=== PATIENT | male | born 1995 | race Caucasian/White ===

== ENCOUNTER 2016-12-10 21:21 | Inpatient (IN) | payer BC, OTHER ==
[~2016-12-10] VITALS: Ht 180.3 cm; Wt 59.0 kg
[~2016-12-10 21:21] MED LIST: Baclofen PO; DICY20TA28 PO; DIPH50CA37 PO; FLUO40CA49 PO; Gabapentin PO; HYDR-3895 PO; Ibuprofen PO; TRAZ-147 PO
[2016-12-10 21:51] LABS: *AMPHETAMINE, URINE NEGATIVE (NEGATIVE); *BARBITURATE, URINE NEGATIVE (NEGATIVE); *CANNABINOID, URINE POSITIVE (NEGATIVE); *COCCAINE, URINE NEGATIVE (NEGATIVE); *OPIATE, URINE POSITIVE (NEGATIVE); *PHENCYCLIDINE SCREEN,URINE NEGATIVE (NEGATIVE)
[2016-12-10] MEDS ORDERED: ACETAMINOPHEN 325 MG TABLET PO PRN (22:15)
[2016-12-10] MEDS ORDERED: METHOCARBAMOL 750 MG TABLET PO PRN (22:15)
[2016-12-10] MEDS ORDERED: MIRALAX 17 GM POWD.PACK PO PRN (22:15)
[2016-12-10] MEDS ORDERED: MAG HYDROX/AL HYDROX/SIMETH 30 ML LIQUID UDC PO PRN (22:15)
[2016-12-10] MEDS ORDERED: DICYCLOMINE HCL 20 MG TABLET PO PRN (22:15)
[2016-12-10] MEDS ORDERED: LORAZEPAM 1 MG TABLET PO PRN ×2 (22:15)
[2016-12-10] MEDS ORDERED: ONDANSETRON 4 MG/2 ML VIAL IM PRN (22:15)
[2016-12-10] MEDS ORDERED: LOPERAMIDE HCL 2 MG CAPSULE PO PRN ×2 (22:15)
[2016-12-10] MEDS ORDERED: IBUPROFEN 600 MG TABLET PO PRN (22:15)
[2016-12-10] MEDS ORDERED: LORAZEPAM 2 MG/1 ML VIAL IM PRN (22:15)
[2016-12-10] MEDS ORDERED: BUPRENORPHINE HCL 2 MG TAB.SUBL SL PRN (22:15)
[2016-12-10 22:20] VITALS: BP 115/59
--- NOTE | 2016-12-10 22:20 | NUR ---
ADMISSION NOTE: New admission is a 21 year old male who arrived to [facility] at 2220 on 12/10/16 for benzodiazepines and opioid dependence. Pre-assessment completed in intake. Patient reports allergies to Penicillin m/b hives. Patient placed on Full Code, Regular Diet, Fall and Seizures Precautions. Patients denies Seizures Hx. UDS Test provided. Patient is ambulatory with steady gate, stable, AOx4, speech is soft and clear. Patient is 71 in, and weights 130lb. PMH: Anxiety, Depression, PTSD, OCD Disorder, Agoraphobia, Substance abuse. VS: T: 98'4; BP: 111/59; HR: 86; RR: 18; O2 SAT: 98%, pain level:"0/10". Respirations unlabored and even. Patient denies SOB and chest pain. Lungs Sounds are clear bilaterally. Bowel Sounds active in all x4 quadrants. Last Bowel Movement was "12/10/2016". PERRLA, brisk capillary refill, bee producer equal and strong. Body check performed by BHT and skin check performed by nurse. Skin is intact, warm and dry to touch. Patient has acnes on his back. Patient states that he is here to safety detox from drugs".. Patient appears mildly intoxicated and answers questions appropriately. COWS 7,CIWA 5. Patient presented with anxiety, agitation, nervousness, tremors, barely sweating, restless legs, and fatigue. Patient denies SI/HI. Patient states that he "relapsed 4 months ago ", and his substance use has steadily increased since that time. History of Substance Use: 1) "Heroin: "Smoked /Snorted 3 grams every day during last 4 months. Last use 3 grams at 1100 on 12/10/2016". 2) "Oxycontin/Percocet PO - for Oxycontin 20-30 mg PO per day; for Percocet: 15-20 mg per day. Last use was on 12/08/2016 Per Patient, he uses either of these substances, whichever is available at the time". 3) "Xanax 8 mg PO daily, last use was 12/10/2016 at 1500". Patient reports smoking 6-7 cigarettes daily since"2011". Written smoking cessation education provided. Patient Verbalizes understanding. Patient brought in home medications: Mirtazapine. PCP: "Nigel Adorno MD". Patient admitted under the care of Rafael Aguillon MD. Rafael Aguillon MD assessed patient in intake office, and aware for patient condition. Encouraged fluids as tolerated. Patient oriented to floor and room, explained how to use call light. Patient verbalized understanding. Safety measures on place. Call light within reach, bed in lowest position and locked, padded rails up bilaterally rails up bilaterally. Will continue to monitor closely. Addendum: 12/14/16 at 0341 by WILTON TORRES RN Skin is intact, warm and dry to touch. Patient has acnes on his back.
--- NOTE | 2016-12-10 22:20 | NUR ---
Pre-admission assessment Patient is a 21-year old, male, seen at intake, AAOx4, no SOB and with no anxiety noted at this time. Discussed with patient admission policies of the unit. Patient is coherent and able to respond to questions appropriately. Patient was recently admitted at [facility] from 04/09/2017 to 05/07/2017. Pt is ambulatory with steady gait. Pt reports that he is using the following substance since September 2016: 1) Heroin-smoked/snorted 3 gms daily, last use was 12/10/2016 at 1100. 2) Oxycontin/Percocet-for Oxycontin 20-30 mg PO daily; for Percocet 15-20 mg PO daily; last use was 12/08/2016. Per patient, he uses either of these substances, whichever is available at the time. 3) Xanax-8mg PO daily, last use was 12/10/2016 at 1500. Vital signs taken and as follows: NB=536/59, P=86, O2 sat on RA=98%, RR=18, T=97.9. Pt verbalized instructions and teachings regarding disposal of narcotic and other controlled home meds, unit protocols such as taking of vital signs Q4H and handling and disposal of contraband.
[2016-12-10 22:35] LABS: BASOPHILS # (AUTO) 0.1 K/uL (0.0-8.0); BASOPHILS % (AUTO) 0.9 % (0.0-2.0); EOSINOPHILS # (AUTO) 0.4 K/uL (0.0-0.7); EOSINOPHILS % (AUTO) 3.8 % (0.0-7.0); HEMATOCRIT 42.6 % (40-50); HEMOGLOBIN 14.6 G/DL (14.0-18.0); LYMPHOCYTES # (AUTO) 2.1 K/UL (0.8-4.8); LYMPHOCYTES % (AUTO) 22.5 % (20.5-74.5); MEAN CORPUSCULAR HEMOGLOBIN 30.2 UUG (27.0-31.0); MEAN CORPUSCULAR HGB CONC 34 g/dL (32.0-37.0); MEAN CORPUSCULAR VOLUME 88.2 FL (82.0-92.0); MONOCYTES # (AUTO) 0.7 K/UL (0.1-1.30); MONOCYTES % (AUTO) 7.2 % (0-11); NEUTROPHILS % (AUTO) 65.6 % (31.5-64.5); PLATELET COUNT (AUTO) 212 K/UL (150-450); RED BLOOD CELL COUNT(AUTO) 4.83 MIL/UL (4.7-6.1); WHITE BLOOD COUNT (AUTO) 9.3 K/UL (4.0-11.2)
[2016-12-10 22:40] LABS: ALANINE AMINOTRANSFERASE 24 U/L (16-63); ALKALINE PHOSPHATASE 42 U/L (50-136); ASPARTATE AMINOTRANSFERASE 21 U/L (15-37); BILIRUBIN,TOTAL 0.5 mg/dL (0.2-1.0); CARBON DIOXIDE 31 mmol/L (21-32); CHLORIDE 103 mmol/L (98-107); GLUCOSE 83 mg/dL (74-106); POTASSIUM 4.5 mmol/L (3.5-5.1); TOTAL PROTEIN, SERUM 7.8 g/dL (6.4-8.2); UREA NITROGEN, BLOOD 11 mg/dL (7-18)
[2016-12-10 22:44] LABS: ETHANOL < 3 MG/DL (0-0)
[2016-12-10] MEDS ORDERED: LORAZEPAM 1 MG TABLET PO ONE (23:00)
[2016-12-10] MEDS: CLONIDINE HCL 0.1 MG TABLET PO PRN (23:13)
--- NOTE | 2016-12-10 23:15 | NUR ---
PRN ATIVAN 2 MG 2 TAB PO AND PRN CLONIDINE 0.1 MG 1TAB PO ADMINISTRATION Patient c/o increased anxiety and insomnia. Patient was assessed. COWS 7. Patient presented with moderated anxiety, agitated, has sweats,and tremors that can be felt. VS WNL. Ordered PRN Ativan 2 mg 2 tab PO and PRN Clonidine 0.1 mg 1 tab PO administrated as ordered with full glass of water. Patient tolerated well. All needs met. Safety measures on place. Call light within reach, bed in lowest position and locked, padded rails up bilaterally rails up bilaterally. Will continue to monitor closely.
[2016-12-10] MEDS ORDERED: LORAZEPAM 1 MG TABLET ONE ×2 (23:20→23:28)
[2016-12-10] MEDS ORDERED: CLONIDINE HCL 0.1 MG TABLET ONE (23:21)
[2016-12-10] MEDS ORDERED: MIRT45TA5 PO (23:35)
[2016-12-11] VITALS: BP_SYST 106; BP_SYST 92; BP_DIAS 49; BP_DIAS 54
--- NOTE | 2016-12-11 00:15 | NUR ---
RE-ASSESSMENT Patient is sleeping. Respirations unlabored and even. RR 16. PRN Ativan and PRN Clonidine were effective. Safety measures on place. Call light within reach, bed in lowest position and locked, padded rails up bilaterally rails up bilaterally. Will continue to monitor closely.
[2016-12-11 04:00] VITALS: BP 93/53
--- NOTE | 2016-12-11 07:11 | NUR ---
END OF SHIFT NOTE: Patient endorsed to day shift nurse in stable condition. Report given. Patient is a 21 year old male admitted to [facility] on 12/10/2016 for medically supervised withdrawal from heroin and benzodiazepines, ordered 5 Day Ativan and 5 Day Subutex Taper started on 12/11/2016. Patient admitted under the care of Rafael Aguillon MD. Patient reports Allergies to Penicillin m/b hives. Patient placed on Full Code, Regular Diet, Fall and Seizures Precautions. Patients denies Seizures Hx. PMH: Anxiety, Depression, PTSD, OCD Disorder, Agoraphobia, Substance abuse. Respirations unlabored and even. Patient denies SOB and chest pain. Skin is warm and dry to touch. Patient has acnes on his back. Patient is cooperative. Patient appears mildly intoxicated and answers questions appropriately. Last COWS 4, CIWA 3 at 0400. 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 Patient denies SI/HI. VS at 0400: T: 97.4; BP: 93/53; HR: 74; RR: 16; O2 SAT: 97%, pain level:"0/10". Respirations unlabored and even. Skin is intact, warm and dry to touch. Patient has acnes on the back. Encouraged fluids as tolerated. PRN Ativan 2 mg 2 tab PO and PRN Clonidine 0.1 mg 1 tab PO administrated for anxiety and insomnia as ordered and were effective. Patient remained compliant with treatment, and medications. Patient slept 5 hours 25 min, intake 500 ml, voided x1. All needs met. Safety measures on place. Call light within reach, bed in lowest position and locked, padded rails up bilaterally. Encouraged fluids as tolerated.
[2016-12-11 08:00] VITALS: BP 100/60
--- NOTE | 2016-12-11 08:15 | NUR ---
START OF SHIFT: RECEIVED PT A/O X 4. HE PRESENTS WITH BLUNTED AFFECT AND DEPRESSED MOOD. HE DENIES S/I AND H/I. HE REPORTS BODY ACHES,ANXIETY,RESTLESSNESS,CHILLS AND SWEATS. COWS 14 CIWA 5. SUBUTEX AND ATIVAN TAPER IN PROGRESS. PPD PLANTED TO [facility]. ENCOURAGED INCREASED FLUIDS TO ASSIST IN FACILITATING DETOX PROCESS. WILL CONTINUE TO MONITOR AND MANAGE S/S OF W/D.
[2016-12-11] MEDS ORDERED: TUBERCULIN,PURIF.PROT.DERIV. 5 TU/0.1 ML TEST ID ONE (09:00)
[2016-12-11] MEDS: LORAZEPAM 1 MG TABLET PO SCH ×4 (09:13→20:11)
[2016-12-11] MEDS: MULTIVITAMINS,THERAPEUTIC TABLET PO SCH (09:14)
[2016-12-11] MEDS: BUPRENORPHINE HCL 2 MG TAB.SUBL SL SCH ×4 (09:18→20:10)
--- NOTE | 2016-12-11 10:40 | NUR ---
ATIVAN 2 MG PO PRN GIVEN FOR CIWA 12. HE REPORTS HE IS ON THE VERGE OF PANIC ATTACK. WILL MONITOR EFFECTIVENESS.
--- NOTE | 2016-12-11 11:40 | NUR ---
PT STATES THE ATRIVAN WAS EFFECTIVE. HE STATES HE FEELS BETTER. CIWA 7. WILL CONTINUE TO MONITOR.
[2016-12-11 12:00] VITALS: BP 114/63
[2016-12-11] MEDS ORDERED: KETOROLAC TROMETHAMINE 30 MG INJ IM PRN (12:30)
--- NOTE | 2016-12-11 13:07 | NUR ---
Therapist prompted client to attend group therapy sessions, and informed client of group times. Client stated that he would attend.
[2016-12-11 16:00] VITALS: BP 134/96
[2016-12-11] MEDS: ONDANSETRON ODT 4 MG TAB.RAPDIS SL PRN (16:33)
--- NOTE | 2016-12-11 16:35 | NUR ---
PRN ZOFRAN GIVEN FOR REPORTED NAUSEA AND ONE EPISODE OF VOMITING. WILL MONITOR EFFECTIVENESS.
--- NOTE | 2016-12-11 17:10 | NUR ---
PRN ZOFRAN EFFECTIVE. PT STATES HE FEELS BETTER.
[2016-12-11] MEDS: BOOST PLUS 237 ML LIQUID (RICH CHOCOLATE) PO SCH (18:28)
--- NOTE | 2016-12-11 18:56 | NUR ---
END OF SHIFT: PT CONTINUES ON ATIVAN/ SUBUTEX TAPER. HE REPORTED CHILLS,BODY ACHES,SWEATS NAUSEA AND VOMITING TODAY. PRN ZOFRAN GIVEN AND PRN ATIVAN GIVEN AND EFFECTIVE. PPD PLANTED TO [facility]. LAST COWS 12 CIWA 7. ENCOURAGED REST AND INCREASED FLUIDS TODAY. WILL PASS SHIFT REPORT TO ONCOMING NIGHT NURSE.
--- NOTE | 2016-12-11 18:56 | NUR ---
START OF SHIFT NOTE: Patient endorsed by day shift nurse in stable condition. Report received. Patient is a 21 year old male admitted to [facility] on 12/10/2016 for medically supervised withdrawal from opioid and benzodiazepines, continue 5 Day Ativan and 5 Day Subutex Taper since 12/11/2016 with tolerated well without ASE. Patient remained compliant with treatment, medications and diet regime. Patient reports Allergies to Penicillin m/b hives. Patient is on Full Code, Regular Diet, Fall and Seizures Precautions. Patients denies Seizures Hx. PMH: Anxiety, Depression, PTSD, OCD Disorder, Agoraphobia, Substance abuse. Upon endorsement, patient is in his room. Assessment done. Patient is alert and oriented x4. Speech is clear and soft. COWS 12, CIWA 7. Patient presented with anxiety, agitation, nervousness, nasal stuffy, moist eyes, diaphoresis, tremors that can be felt, restlessness, body aches, insomnia and fatigue. Patient denies SI/HI. VSWNL. Respirations unlabored and even. Patient denies SOB and chest pain. Lungs Sounds are clear bilaterally. Bowel Sounds active in all x4 quadrants. PERRLA, brisk capillary refill, commercial journeyman electrician equal and strong. Encourage fluids as tolerated. Encourage to attend activities group. Safety measures on place. Call light within reach, bed in lowest position and locked, padded rails up bilaterally rails up bilaterally. Will continue to monitor closely.
[2016-12-11 20:00] VITALS: BP 111/62
[2016-12-11] MEDS: diphenhydrAMINE 50 MG CAPSULE PO PRN (21:43)
--- NOTE | 2016-12-11 21:43 | NUR ---
PRN BENADRYL 50 MG 1 TAB PO ADMINISTRATION: Patient c/o insomnia and asked aid. Patient was assessed. VS WNL. PRN Benadryl 50 mg 1 tab PO administrated as ordered with full glass of water. Patient tolerated well. All needs met. Safety measures on place. Call light within reach, bed in lowest position and locked, padded rails up bilaterally.
--- NOTE | 2016-12-11 22:43 | NUR ---
RE-ASSESSMENT Patient is sleeping. Respirations unlabored and even. RR 14. PRN Benadryl PO was effective. All needs met. Safety measures on place. Call light within reach, bed in lowest position and locked, padded rails up bilaterally rails up bilaterally. Will continue to monitor closely.
[2016-12-11] MEDS: HYDROXYZINE PAMOATE 25 MG CAPSULE PO PRN (23:18)
--- NOTE | 2016-12-11 23:18 | NUR ---
PRN VISTARIL 25 MG 1 CAP PO AND PRN ROBAXIN 750 MG 1TAB PO ADMINISTRATION Patient c/o increased anxiety and myalgia. Patient was assessed. COWS 6. Patient presented with anxiety, agitation, nervousness, has sweats, and tremors that can be felt. VS WNL. Ordered PRN Vistaril 25 mg 1 cap PO and PRN Robaxin 750 mg 1 tab PO administrated as ordered with full glass of water. Patient tolerated well. All needs met. Safety measures on place. Call light within reach, bed in lowest position and locked, padded rails up bilaterally rails up bilaterally. Will continue to monitor closely.
[2016-12-12] VITALS: BP 116/62
--- NOTE | 2016-12-12 00:18 | NUR ---
RE-ASSESSMENT Patient is sleeping. Respirations unlabored and even. RR 14. Ordered PRN Vistaril 25 mg 1 cap PO and PRN Robaxin 750 mg 1 tab PO were effective. All needs met. Safety measures on place. Call light within reach, bed in lowest position and locked, padded rails up bilaterally rails up bilaterally. Will continue to monitor closely.
[2016-12-12 04:00] VITALS: BP 104/49
--- NOTE | 2016-12-12 07:02 | NUR ---
END OF SHIFT NOTE: Patient endorsed to day shift nurse in stable condition. Report given. Patient is a 21 year old male admitted to [facility] on 12/10/2016 for medically supervised withdrawal from heroin and benzodiazepines, continue 5 Day Ativan and 5 Day Subutex Taper started on 12/11/2016 with tolerated well without ASE. Patient remained compliant with treatment, medications and diet regime. Patient reports Allergies to Penicillin m/b hives. Patient placed on Full Code, Regular Diet, Fall and Seizures Precautions. Patients denies Seizures Hx. PMH: Anxiety, Depression, PTSD, OCD Disorder, Agoraphobia, Substance abuse. Patient is cooperative. Patient appears mildly intoxicated and answers questions appropriately. Last COWS 5, CIWA 3 at 0400. 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 Patient denies SI/HI. VS at 0400: T: 98.2; BP: 104/49; HR: 65; RR:20; O2 SAT: 99%, body aches pain level:"6/10". Respirations unlabored and even. Skin is intact, warm and dry to touch. Patient has acnes on the back. Encouraged fluids as tolerated. Encourage to attend group activities PRN Benadryl 50 mg 1 cap PO, Vistaril 25 mg 1 cap PO and PRN Robaxin 750 mg 1 tab PO were effective. Patient remained compliant with treatment, and medications. Patient slept 5 hours 25 min, intake 500 ml, voided x1. All needs met. Safety measures on place. Call light within reach, bed in lowest position and locked, padded rails up bilaterally.
--- NOTE | 2016-12-12 07:42 | NUR ---
START OF SHIFT NOTE Received report from night nurse, 21 year old male admitted for Opioid and benzo dependence. Pt continue with 5 Day Ativan and 5 Day Subutex Taper. Pt reported PMH of Anxiety, Depression, PTSD, OCD Disorder, Agoraphobia, Substance abuse. Per endorsement pt received PRN Benadryl, Vistaril, Robaxin effective, slept for 5 hours, last CIWA-3, COWS-5. Received pt in his room c/o of nausea x1 emesis. Educated patient on his current plan of care for the day and his medication regimen, and encourage Po fluids as tolerated. All safety measures in place, Call light within reach. Will continue to monitor.
[2016-12-12] MEDS: ONDANSETRON ODT 4 MG TAB.RAPDIS SL PRN (07:46)
--- NOTE | 2016-12-12 07:46 | NUR ---
PRN ZOFRAN Pt reported nausea and x1 emesis. PRN Zofran 4mg SL administered as ordered. Will cont to monitor and reassess.
[2016-12-12 08:00] VITALS: BP 121/63
--- NOTE | 2016-12-12 08:15 | NUR ---
REASSESSMENT Upon reassessment pt reported medication effective nausea improved and no episode of emesis reported by the pt.
[2016-12-12] MEDS: BOOST PLUS 237 ML LIQUID (RICH CHOCOLATE) PO SCH ×2 (08:44→16:52)
[2016-12-12] MEDS: MULTIVITAMINS,THERAPEUTIC TABLET PO SCH (08:45)
[2016-12-12] MEDS: LORAZEPAM 1 MG TABLET PO SCH ×3 (08:45→21:04)
[2016-12-12] MEDS: BUPRENORPHINE HCL 2 MG TAB.SUBL SL SCH ×3 (08:45→21:05)
[2016-12-12 12:00] VITALS: BP 124/72
[2016-12-12 12:10] LABS: HEPATITIS B SURFACE AG Negative (Negative)
[2016-12-12] MEDS ORDERED: ASPIRIN/ACETAMINOPHEN/CAFFEINE TABLET PO PRN (12:30)
--- NOTE | 2016-12-12 12:51 | NUR ---
SUBUTEX/ATIVAN X1 DOSE Pt was seen by Dr. Ordoñez with new x1 order of Subutex 4mg SL /Ativan 1mg Po. Administered medications as order COWS score noted 10, CIWA-9. Will cont to monitor.
[2016-12-12] MEDS ORDERED: LORAZEPAM 1 MG TABLET PO ONE (13:00)
[2016-12-12] MEDS ORDERED: BUPRENORPHINE HCL 2 MG TAB.SUBL SL ONE (13:00)
--- NOTE | 2016-12-12 13:15 | NUR ---
SUBUTEX REASSESSMENT Upon reassessment pt reported medication effective COWS score noted-7. Will cont to monitor.
--- NOTE | 2016-12-12 13:51 | NUR ---
ATIVAN REASSESSMENT Upon reassessment pt reported medication effective CIWA score noted-4. Will cont to monitor.
[2016-12-12] MEDS: BACLOFEN 10 MG TABLET PO SCH ×2 (15:26→21:04)
[2016-12-12] MEDS: DICYCLOMINE HCL 20 MG TABLET PO SCH ×2 (15:26→21:05)
[2016-12-12 16:00] VITALS: BP 125/69
--- NOTE | 2016-12-12 19:02 | NUR ---
END OF SHIFT NOTE Gave report to night nurse, 21 year old male admitted for Opioid and benzo dependence. Pt continue with 5 Day Ativan and 5 Day Subutex Taper tolerating well. Pt reported PMH of Anxiety, Depression, PTSD, OCD Disorder, Agoraphobia, Substance abuse. Pt presented anxious, agitated, sweats, chills, nausea, vomiting. Pt was given PRN Zofran, x1 order of Subutex and Ativan effective. Pt also seen by Dr. Hanson with new order of Remeron. Pt remained compliant with care. Vital signs remained WNL. All safety measures in place, Call light within reach. Pt endorsed to night nurse in stable condition.
--- NOTE | 2016-12-12 19:15 | NUR ---
START OF SHIFT Received 21 year old male patient admitted on 12/10/16 for Heroin, Oxycodone and Xanax dependency. Pt is full code with NKA. He reports a PMHx of anxiety, depression, OCD, and PTSD. Pt reports using Heroin (inhalation) 3 grams daily for 4 months. Last dose was 3 grams on 12/10/16. Oxycodone 20-40 mg daily for 4 years. Last dose was 20 mg on 12/09/16. Xanax PO 6-8 mg daily for 4 years. Last dose was 6 mg on 12/10/16. Percocet PO 15-20 mg daily. Last dose was 12/08/16. Per endorsement, pt received Subutex 4 mg and Ativan 2 mg x1, and PRN Zofran. Pt placed on 5 day Ativan taper and 5 day Subutex taper started on 12/11/16. Pt is alert and oriented x4, breathing is even and unlabored. Safety measures in place. Will continue to monitor.
[2016-12-12 20:00] VITALS: BP 117/72
[2016-12-12] MEDS: GABAPENTIN 300 MG CAPSULE PO SCH (21:04)
[2016-12-12] MEDS: MIRTAZAPINE 15 MG TABLET PO SCH (21:04)
[2016-12-12] MEDS: diphenhydrAMINE 50 MG CAPSULE PO PRN ×2 (21:05→22:18)
--- NOTE | 2016-12-12 22:18 | NUR ---
PRN BENADRYL Pt complains of inability to sleep. PRN Benadryl administered as ordered. Breathing is even and unlabored. Safety measures in place. Will monitor effectiveness.
--- NOTE | 2016-12-12 23:18 | NUR ---
PRN BENADRYL REASSESSMENT PRN medication somewhat effective. Pt lying in bed appears drowsy and reports he is ready to sleep. Safety measures in place. Will continue to monitor.
[2016-12-13] VITALS: BP 134/85
[2016-12-13] MEDS: CLONIDINE HCL 0.1 MG TABLET PO PRN (00:45)
--- NOTE | 2016-12-13 00:45 | NUR ---
PRN CLONIDINE Pt complains of anxiety. Pt noted to be restless and tossing/turning in bed. PRN Clonidine administered as ordered. Breathing is even and unlabored, safety measures in place. Will monitor effectiveness.
--- NOTE | 2016-12-13 01:45 | NUR ---
PRN CLONIDINE REASSESSMENT PRN medication effective. Pt is lying in bed with eyes closed noted to be asleep. No facial grimacing. Respirations 16, breathing is even and unlabored. Safety measures in place. Will monitor.
--- NOTE | 2016-12-13 04:00 | NUR ---
VITALS REFUSED/COWS, CIWA DEFERRED 0400 vitals refused. COWS and CIWA deferred d/t pt lying in bed with eyes closed noted to be asleep. Respirations 16, breathing is even and unlabored, safety measures in place. Will continue to monitor.
--- NOTE | 2016-12-13 07:05 | NUR ---
END OF SHIFT Pt is a 21 year old male patient admitted on 12/10/16 for Heroin, Oxycodone and Xanax dependency. Pt is full code with NKA. He reports a PMHx of anxiety, depression, OCD, and PTSD. Pt continues on a 5 day Ativan taper and 5 day Subutex taper started on 12/11/16 and tolerating well. At 2218 he received PRN Benadryl, at 0045 he received PRN Clonidine. He slept a total of 7 hrs, Intake: 1350 mL, Void: x1, BM:0, COWS:6, CIWA:5. Pt remains alert and oriented x4, breathing is even and unlabored. Safety measures in place. Will endorse to oncoming shift.
--- NOTE | 2016-12-13 07:49 | NUR ---
START OF SHIFT NOTE Received report from night nurse, 21 year old male admitted for Opioid and benzo dependence. Pt continue with 5 Day Ativan and 5 Day Subutex Taper. Pt reported PMH of Anxiety, Depression, PTSD, OCD Disorder, Agoraphobia, Substance abuse. Per endorsement pt received PRN Clonidine effective, slept for 7 hours, last CIWA-5, COWS-6. Received pt in his resting comfortably, no s/s of acute distress noted. Breathing normal no SOB noted. Skin warm and dry tot touch. Educated patient on his current plan of care for the day and his medication regimen, and encourage Po fluids as tolerated. All safety measures in place, Call light within reach. Will continue to monitor.
[2016-12-13 08:00] VITALS: BP 104/64
[2016-12-13] MEDS: LORAZEPAM 1 MG TABLET PO SCH ×4 (08:47→20:56)
[2016-12-13] MEDS: GABAPENTIN 300 MG CAPSULE PO SCH ×3 (08:47→20:55)
[2016-12-13] MEDS: DICYCLOMINE HCL 20 MG TABLET PO SCH ×3 (08:47→20:56)
[2016-12-13] MEDS: MULTIVITAMINS,THERAPEUTIC TABLET PO SCH (08:47)
[2016-12-13] MEDS: BOOST PLUS 237 ML LIQUID (RICH CHOCOLATE) PO SCH ×2 (08:48→16:44)
[2016-12-13] MEDS: BACLOFEN 10 MG TABLET PO SCH (08:54)
[2016-12-13] MEDS ORDERED: BUPRENORPHINE HCL 2 MG TAB.SUBL SL SCH (09:00)
[2016-12-13] MEDS: HYDROXYZINE PAMOATE 25 MG CAPSULE PO PRN (11:31)
--- NOTE | 2016-12-13 11:31 | NUR ---
PRN VISTARIL Pt reported increased in anxiety, agitation. Pt provided with non pharmacological intervention with no relief, providing with calming reassurance with no relief. Administered PRN Vistaril 25mg Po as ordered. Will cont to monitor.
[2016-12-13 12:00] VITALS: BP 122/81
--- NOTE | 2016-12-13 12:31 | NUR ---
VISTARIL REASSESSMENT Upon reassessment pt reported feeling a lot better anxiety and agitation subside, medication effective.
[2016-12-13] MEDS: CLONIDINE HCL 0.1 MG TABLET PO SCH ×2 (14:00→20:57)
[2016-12-13] MEDS: BACLOFEN 20 MG TABLET PO SCH ×2 (14:00→20:57)
[2016-12-13] MEDS: BUPRENORPHINE HCL 2 MG TAB.SUBL SL SCH ×2 (14:00→20:55)
[2016-12-13 16:00] VITALS: BP 119/64
[2016-12-13] MEDS: ONDANSETRON ODT 4 MG TAB.RAPDIS SL PRN (16:44)
--- NOTE | 2016-12-13 16:44 | NUR ---
PRN ZOFRAN Pt reported nausea no episode of emesis. PRN Zofran 4mg SL administered as ordered. Will cont to monitor and reassess.
--- NOTE | 2016-12-13 17:14 | NUR ---
REASSESSMENT Upon reassessment pt reported medication effective nausea improved. Will cont to monitor.
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
--- NOTE | 2016-12-13 19:04 | NUR ---
END OF SHIFT NOTE Endorsed Pt to shift commander nurse. Patient is AOX4. Pt cont with Ativan/Subutex taper tolerating well. Vital signs stable during shift. Encouraged PO fluids as tolerated. Pt received PRN Vistaril/Zofran medications effective. Patient encouraged to attend group therapies/sessions to learn new coping skills to prevent relapse, patient denies SI/HI. Pt remained compliant with plan of care. Fall and seizure precautions observed at all times, all needs met and rendered, Safety measures in place. Call light kept within reach. Patient endorsed to shift commander nurse, all pertinent information discussed. Patient endorsed to shift commander nurse in stable condition.
[2016-12-13 20:00] VITALS: BP 113/78
[2016-12-13] MEDS: MIRTAZAPINE 15 MG TABLET PO SCH (20:56)
[2016-12-14] VITALS: BP 107/71
[2016-12-14 04:00] VITALS: BP 128/65
--- NOTE | 2016-12-14 06:49 | NUR ---
END OF SHIFT NOTE: Patient endorsed to day shift nurse in stable condition. Report given. Patient is a 21 year old male admitted to [facility] on 12/10/2016 for medically supervised withdrawal from heroin and benzodiazepines, continue 5 Day Ativan and 5 Day Subutex Taper started on 12/11/2016 with tolerated well without ASE. Patient remained compliant with treatment, medications and diet regime. Patient reports Allergies to Penicillin m/b hives. Patient placed on Full Code, Regular Diet, Fall and Seizures Precautions. Patients denies Seizures Hx. PMH: Anxiety, Depression, PTSD, OCD Disorder, Agoraphobia, Substance abuse. Patient is cooperative. Patient appears mildly intoxicated and answers questions appropriately. Last COWS 4, CIWA 3 at 0400. 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 Patient denies SI/HI. VS at 0400: T: 97.7; BP: 128/65; HR: 67; RR:18; O2 SAT: 99%, body aches pain level:"0/10". Respirations unlabored and even. Skin is intact, warm and dry to touch. Patient has acnes on the back and the face. Encouraged fluids as tolerated. Encourage to attend group activities. No PRN Medications administrated last night. Patient remained compliant with treatment, and medications. Patient slept 6 hours, intake 2,000 ml, voided x3. All needs met. Safety measures on place. Call light within reach, bed in lowest position and locked, padded rails up bilaterally.
--- NOTE | 2016-12-14 07:45 | NUR ---
START OF SHIFT NOTE Received report from night nurse, 21 year old male admitted for Opioid and benzo dependence. Pt continue with 5 Day Ativan and 5 Day Subutex Taper. Pt reported PMH of Anxiety, Depression, PTSD, OCD Disorder, Agoraphobia, Substance abuse. Per endorsement pt did not receive any PRN, slept for 7 hours, last CIWA-3, COWS-4. Received pt in his room alert awake oriented x4, no s/s of acute distress noted. Breathing normal no SOB noted. Skin warm and dry to touch. Educated patient on his current plan of care for the day and his medication regimen, and encourage Po fluids as tolerated. All safety measures in place, Call light within reach. Will continue to monitor.
[2016-12-14 08:00] VITALS: BP 125/70
[2016-12-14] MEDS: CLONIDINE HCL 0.1 MG TABLET PO SCH ×3 (08:32→21:00)
[2016-12-14] MEDS: MULTIVITAMINS,THERAPEUTIC TABLET PO SCH (08:32)
[2016-12-14] MEDS: BUPRENORPHINE HCL 2 MG TAB.SUBL SL SCH ×3 (08:32→21:50)
[2016-12-14] MEDS: BOOST PLUS 237 ML LIQUID (RICH CHOCOLATE) PO SCH ×2 (08:32→17:27)
[2016-12-14] MEDS: BACLOFEN 20 MG TABLET PO SCH ×3 (08:32→21:49)
[2016-12-14] MEDS: LORAZEPAM 1 MG TABLET PO SCH ×3 (08:32→21:50)
[2016-12-14] MEDS: GABAPENTIN 300 MG CAPSULE PO SCH ×3 (08:32→21:49)
[2016-12-14] MEDS: DICYCLOMINE HCL 20 MG TABLET PO SCH ×3 (08:32→21:49)
[2016-12-14 12:00] VITALS: BP 110/75
[2016-12-14] MEDS: HYDROXYZINE PAMOATE 25 MG CAPSULE PO SCH ×4 (12:46→21:49)
[2016-12-14 16:00] VITALS: BP 106/63
--- NOTE | 2016-12-14 19:12 | NUR ---
END OF SHIFT NOTE Endorsed Pt to production supervisor off shift nurse. Patient is AOX4.21 year old male admitted for Heroin/opioid/Benzo. Pt cont with Ativan/Subutex taper tolerating well. Vital signs stable during shift. Encouraged PO fluids as tolerated. Pt did not receive any PRN medication during shift. Patient encouraged to attend group therapies/sessions to learn new coping skills to prevent relapse, patient denies SI/HI. Pt remained compliant with plan of care. Fall and seizure precautions observed at all times, all needs met and rendered, Safety measures in place. Call light kept within reach. Patient endorsed to production supervisor off shift nurse, all pertinent information discussed. Patient endorsed to production supervisor off shift nurse in stable condition.
--- NOTE | 2016-12-14 19:30 | NUR ---
START OF SHIFT Pt is a 21 year old male admitted for Opioid and benzo dependence. Pt continue with 5 Day Ativan and 5 Day Subutex Taper, as ordered.No A/R noted or repoted. Pt has PMH of Anxiety, Depression, PTSD, OCD Disorder, Agoraphobia, Substance abuse. Last CIWA-3, COWS-3. Pt is A/O X 4, no s/s of acute distress noted. Breathing is even and non labored, no SOB noted. Skin warm and dry to touch. Pt encouraged Po fluids as tolerated. All safety measures in place, Call light within reach. Will continue to monitor.
[2016-12-14 20:00] VITALS: BP 90/60
[2016-12-14] MEDS: MIRTAZAPINE 15 MG TABLET PO SCH (21:49)
[2016-12-15] VITALS: BP 88/58
[2016-12-15] MEDS: diphenhydrAMINE 50 MG CAPSULE PO PRN (01:49)
--- NOTE | 2016-12-15 01:50 | NUR ---
PRN MEDS Pt c/o insomnia.PRN Benadryl given as ordered,will monitor.
--- NOTE | 2016-12-15 02:50 | NUR ---
PRN F/U Pt is resting in bed with eyes closed;no s/s of distress noted;will continue to monitor.
--- NOTE | 2016-12-15 04:00 | NUR ---
PT REFUSED V/S.COWS/CIWA DEFERRED. PT SLEEPING COMFORTABLY IN BED.NO S/S OF DISTRESS NOTED.REFUSED V/S.COWS/CIWA DEFERRED.
--- NOTE | 2016-12-15 06:40 | NUR ---
END OF SHIFT Pt is a 21 year old male admitted for Opioid and benzo dependence. Pt continue with 5 Day Ativan and 5 Day Subutex Taper, as ordered.No A/R noted or repoted. Pt has PMH of Anxiety, Depression, PTSD, OCD Disorder, Agoraphobia, Substance abuse. Last CIWA-3, COWS-3. Pt is A/O X 4, no s/s of acute distress noted. Breathing is even and non labored, no SOB noted. Skin warm and dry to touch. Pt encouraged Po fluids as tolerated.PRN Benadryl was given for insomnia.Pt slept 4.5 hrs,fluid intake was 1,000 mls,voide x 2. All safety measures in place, Call light within reach. Will continue to monitor.
--- NOTE | 2016-12-15 07:15 | NUR ---
Start of Shift Endorsement received from nightshift nurse. Pt is a 21 y/o male admitted for Opiate and Xanax dependence. Pt has been placed on a 5 day Ativan and 5 day Subutex taper. Pt is tolerating the taper well AEB COWS 3, CIWA 3 at midnight. Pt received PRN Benadryl. PT reports sleeping 5 hours. VS WNL. Full Code. PT is alert and oriented x4. Pt is in STABLE condition at this time. Remains compliant with medication and diet regimen. All needs have been met, All safety measures in place per hospital policy. Bed in lowest position, side rails up x2, call-light within reach. Will continue to monitor
[2016-12-15 08:00] VITALS: BP 106/61
[2016-12-15] MEDS: LORAZEPAM 1 MG TABLET PO SCH ×2 (08:30→21:08)
[2016-12-15] MEDS: BACLOFEN 20 MG TABLET PO SCH ×3 (08:30→21:07)
[2016-12-15] MEDS: MULTIVITAMINS,THERAPEUTIC TABLET PO SCH (08:30)
[2016-12-15] MEDS: BUPRENORPHINE HCL 2 MG TAB.SUBL SL SCH ×2 (08:30→21:07)
[2016-12-15] MEDS: DICYCLOMINE HCL 20 MG TABLET PO SCH ×3 (08:30→21:07)
[2016-12-15] MEDS: HYDROXYZINE PAMOATE 25 MG CAPSULE PO SCH ×4 (08:30→21:07)
[2016-12-15] MEDS: CLONIDINE HCL 0.1 MG TABLET PO SCH ×3 (08:31→21:07)
[2016-12-15] MEDS: BOOST PLUS 237 ML LIQUID (RICH CHOCOLATE) PO SCH ×2 (08:31→17:14)
[2016-12-15] MEDS: GABAPENTIN 300 MG CAPSULE PO SCH ×3 (08:31→21:08)
[2016-12-15] MEDS ORDERED: BUPRENORPHINE HCL 2 MG TAB.SUBL SL SCH (09:00)
--- NOTE | 2016-12-15 11:57 | NUR ---
Therapist prompted client about group times. Client stated he will go to all groups today. Client stated he did not go to a group yesterday because he fell asleep.
[2016-12-15 12:00] VITALS: BP 121/67
[2016-12-15 16:00] VITALS: BP 105/65
--- NOTE | 2016-12-15 18:44 | NUR ---
End of Shift Endorsement given to nightshift nurse. Pt is a 21 y/o male admitted for Opiate and Xanax dependence. Pt has been placed on a 5 day Ativan and 5 day Subutex taper. Pt is tolerating the taper well AEB COWS 4, CIWA 4 at 1600. Pt reports increased anxiety due to his taper being almost complete. PT has not received any PRN medications. Educated pt on importance of finding none medicinal ways of dealing with his anxiety to help prevent relapse. Intake: 2175ml, Void x3, BM x0. VS WNL. Full Code. PT is alert and oriented x4. Pt is in STABLE condition at this time. Remains compliant with medication and diet regimen. All needs have been met, All safety measures in place per hospital policy. Bed in lowest position, side rails up x2, call-light within reach. Will continue to monitor
--- NOTE | 2016-12-15 19:03 | NUR ---
Start of shift note Received report from day shift nurse. Pt is a 21 yo male, A+Ox4, presenting to [facility] for Opiate/Benzo/Marijuana dependence. Pt has Allergies to PCN, is on Full Code status, and on Regular diet. PT is on Fall and Seizure precautions. Pt has HX of Anxiety, Depression, OCD, PTSD, and agoraphobia. Pt is on 5 day Ativan and 5 day Subutex taper, tolerated well. No s/s of distress noted at this time. Respirations even and unlabored. Will continue to monitor.
[2016-12-15 20:15] VITALS: BP 148/90
[2016-12-15] MEDS: MIRTAZAPINE 15 MG TABLET PO SCH (21:07)
[2016-12-16 00:12] VITALS: BP 102/67
[2016-12-16] MEDS: diphenhydrAMINE 50 MG CAPSULE PO PRN ×2 (00:27→22:48)
--- NOTE | 2016-12-16 00:29 | NUR ---
PRN Benadryl Pt c/o inability to sleep and requested for PRN Benadryl. Medication given and tolerated well. Will reassess within 1 HR. Will continue to monitor.
--- NOTE | 2016-12-16 01:25 | NUR ---
PRN Trazodone Reassessment Medication effective. Pt is resting well in bed. No s/s of ASE/distress noted at this time. Respirations even and unlabored. Will continue to monitor. Addendum: 12/16/16 at 0617 by TENA ANDREA LVN PRN Benadryl Reassessment
[2016-12-16 04:12] VITALS: BP 108/68
--- NOTE | 2016-12-16 07:00 | NUR ---
End of shift note Pt is a 21 yo male, A+Ox4, presenting to [facility] for Opiate/Benzo/Marijuana dependence. Pt has Allergies to PCN, is on Full Code status, and on Regular diet. PT is on Fall and Seizure precautions. Pt has HX of Anxiety, Depression, OCD, PTSD, and agoraphobia. Pt is on 5 day Ativan and 5 day Subutex taper, tolerated well. Pt was given PRN Benadryl @0029. Pt slept for a total of 5 HRS. Last COWS: 1 and Last CIWA: 1 @0400. No s/s of distress noted at this time. Respirations even and unlabored. Will endorse to day shift nurse.
[2016-12-16] MEDS: BOOST PLUS 237 ML LIQUID (RICH CHOCOLATE) PO SCH ×2 (08:00→17:00)
[2016-12-16] MEDS: DICYCLOMINE HCL 20 MG TABLET PO SCH ×3 (08:29→21:03)
[2016-12-16] MEDS: CLONIDINE HCL 0.1 MG TABLET PO SCH ×3 (08:29→21:03)
[2016-12-16 08:30] VITALS: BP 153/96
[2016-12-16] MEDS: GABAPENTIN 300 MG CAPSULE PO SCH ×3 (08:30→21:02)
[2016-12-16] MEDS: HYDROXYZINE PAMOATE 25 MG CAPSULE PO SCH ×4 (08:30→21:02)
[2016-12-16] MEDS: BACLOFEN 20 MG TABLET PO SCH ×3 (08:30→21:03)
[2016-12-16] MEDS: MULTIVITAMINS,THERAPEUTIC TABLET PO SCH (08:31)
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
[2016-12-16] MEDS ORDERED: BUPRENORPHINE HCL 2 MG TAB.SUBL SL SCH (09:00)
[2016-12-16 12:00] VITALS: BP 105/73
[2016-12-16] MEDS: QUETIAPINE FUMARATE 25 MG TABLET PO PRN ×2 (12:04→22:48)
--- NOTE | 2016-12-16 12:04 | NUR ---
PRN SEROQUEL Patient complains of agitation, prn seroquel given. Will continue to monitor patient.
--- NOTE | 2016-12-16 13:04 | NUR ---
REASSESSMENT PRN SEROQUEL Patient reports feeling better, med effective
[2016-12-16 14:23] LABS: *AMPHETAMINE, URINE NEGATIVE (NEGATIVE); *BARBITURATE, URINE NEGATIVE (NEGATIVE); *CANNABINOID, URINE POSITIVE (NEGATIVE); *COCCAINE, URINE NEGATIVE (NEGATIVE); *OPIATE, URINE NEGATIVE (NEGATIVE); *PHENCYCLIDINE SCREEN,URINE NEGATIVE (NEGATIVE)
[2016-12-16 16:00] VITALS: BP 104/62
[2016-12-16] MEDS ORDERED: TRAZODONE 50 MG TABLET PO PRN (17:15)
--- NOTE | 2016-12-16 18:57 | NUR ---
END OF SHIFT Patient is 21yo male admitted for supervised withdrawal from opioids and alprazolam. Alert and oriented X4, full code with allergy to penicillin. Most recent CIWA = 2 and COWS: 2. Patient reports mild anxiety. Denies headache, body ache, numbing/tingling sensation, nausea, vomiting, diarrhea. Med compliant this shift. PRN seroquel given for anxiety/agitation, effective. Patient is tolerating current diet without n/v. Possible discharge tomorrow. All needs met. 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
--- NOTE | 2016-12-16 19:15 | NUR ---
START OF SHIFT Received 21 year old male patient admitted on 12/10/16 for Heroin, Oxycodone and Xanax dependency. Pt is full code with NKA. He reports a PMHx of anxiety, depression, OCD, and PTSD. Pt reports using Heroin (inhalation) 3 grams daily for 4 months. Last dose was 3 grams on 12/10/16. Oxycodone 20-40 mg daily for 4 years. Last dose was 20 mg on 12/09/16. Xanax PO 6-8 mg daily for 4 years. Last dose was 6 mg on 12/10/16. Percocet PO 15-20 mg daily. Last dose was 12/08/16. Per endorsement, pt is scheduled to be DC tomorrow. Pt completed his 5 day Ativan taper and 5 day Subutex taper started on 12/11/16 and tolerated well. Pt is alert and oriented x4, breathing is even and unlabored. Safety measures in place. Will continue to monitor.
[2016-12-16 20:00] VITALS: BP 106/63
[2016-12-16] MEDS: MIRTAZAPINE 15 MG TABLET PO SCH (21:03)
--- NOTE | 2016-12-16 22:48 | NUR ---
PRN BENADRYL/SEROQUEL Pt complains of agitation/restlessness and inability to fall asleep. PRN Benadryl and Seroquel administered as ordered. Breathing even and unlabored, safety measures in place. Will monitor effectiveness.
--- NOTE | 2016-12-16 23:48 | NUR ---
PRN BENADRYL/SEROQUEL REASSESSMENT PRN medications effective. Pt lying in bed with eyes closed noted to be asleep. No facial grimacing noted. Respirations 16, breathing is even and unlabored. Safety measures in place. Will continue to monitor.
--- NOTE | 2016-12-17 | NUR ---
VITALS REFUSED/COWS, CIWA DEFERRED 0000 vitals refused. COWS and CIWA deferred d/t pt lying in bed with eyes closed noted to be asleep. Respirations 16, breathing is even and unlabored, safety measures in place. Will continue to monitor.
--- NOTE | 2016-12-17 04:00 | NUR ---
VITALS REFUSED/COWS, CIWA DEFERRED 0400 vitals refused. COWS and CIWA deferred d/t pt lying in bed with eyes closed noted to be asleep. Respirations 16, breathing is even and unlabored, safety measures in place. Will monitor.
--- NOTE | 2016-12-17 07:00 | NUR ---
END OF SHIFT Pt is a 21 year old male patient admitted on 12/10/16 for Heroin, Oxycodone and Xanax dependency. Pt is full code with NKA. He reports a PMHx of anxiety, depression, OCD, and PTSD. He is scheduled to be DC today. He received PRN Benadryl and Seroquel at 2248. He slept a total of 6 hrs, Intake: 1250mL, Void: x2, BM:0, COWS:2, CIWA:2. Pt remains alert and oriented x4, breathing is even and unlabored. Safety measures in place. Endorsed to AM shift.
[2016-12-17 08:00] VITALS: BP 103/51
[2016-12-17] MEDS: BOOST PLUS 237 ML LIQUID (RICH CHOCOLATE) PO SCH (08:00)
[2016-12-17] MEDS ORDERED: DICY20TA28 PO (08:15)
[2016-12-17] MEDS ORDERED: MIRT15TA7 PO (08:15)
[2016-12-17] MEDS ORDERED: CLON0.1T14 PO (08:15)
[2016-12-17] MEDS ORDERED: METH-406 PO (08:15)
[2016-12-17] MEDS ORDERED: HYDR-3895 PO (08:15)
[2016-12-17] MEDS ORDERED: QUET25TA PO (08:15)
[2016-12-17 08:18] VITALS: BP 141/73
[2016-12-17] MEDS: MULTIVITAMINS,THERAPEUTIC TABLET PO SCH (08:18)
[2016-12-17] MEDS: GABAPENTIN 300 MG CAPSULE PO SCH (08:18)
[2016-12-17] MEDS: DICYCLOMINE HCL 20 MG TABLET PO SCH (08:18)
[2016-12-17] MEDS: BACLOFEN 20 MG TABLET PO SCH (08:18)
[2016-12-17] MEDS: CLONIDINE HCL 0.1 MG TABLET PO SCH (08:18)
[2016-12-17] MEDS: HYDROXYZINE PAMOATE 25 MG CAPSULE PO SCH (08:18)
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
--- NOTE | 2016-12-17 11:37 | NUR ---
Discharge note Patient is stable condition. Vitals signs WNL, patient is alert and oriented X4. Denies suicidal or homicidal ideation. All discharge paperwork completed, dated and signed. Patient was educated about the discharge instructions. Patient was discharged from [facility] on 12/17/16 at 11:37am. Patient left the facility with all his belongings. Patient received back his home med. Patient did not report any concerns at the time of his discharge.
== END 2016-12-17 11:37 | disposition home or self-care (01) | DRG 895 ==
LOC: SRC 21:21
PROVIDERS: ADMIT Internal Medicine; ATTEND Internal Medicine
PROC: HZ2ZZZZ Detoxification Services for Substance Abuse Treatment (ICD-10-PCS; principal; 2016-12-10)
PROC: HZ41ZZZ Group Counseling for Substance Abuse Treatment, Behavioral (ICD-10-PCS; 2016-12-11)
PROC: HZ31ZZZ Individual Counseling for Substance Abuse Treatment, Behavioral (ICD-10-PCS; 2016-12-11)
DX: F11.23 Opioid dependence with withdrawal (principal); F13.230 Sedative, hypnotic or anxiolytic dependence with withdrawal, uncomplicated; F17.210 Nicotine dependence, cigarettes, uncomplicated; F14.21 Cocaine dependence, in remission; F10.21 Alcohol dependence, in remission; G47.00 Insomnia, unspecified; F90.9 Attention-deficit hyperactivity disorder, unspecified type; F41.9 Anxiety disorder, unspecified; F15.21 Other stimulant dependence, in remission; R01.0 Benign and innocent cardiac murmurs; F12.90 Cannabis use, unspecified, uncomplicated; Z81.8 Family history of other mental and behavioral disorders; Z84.89 Family history of other specified conditions
CPT/HCPCS: 36415; 70030-TC; 80307; 80346; 80349; 80361; 83735; 85025; 86580; 86592; 86705; 86803; 87340; 87806; G0480; Q0162; Q0163

== ENCOUNTER 2021-03-12 14:13 | Emergency (ER) | payer BC, OTHER ==
[~2021-03-12] VITALS: Ht 180.3 cm; Wt 59.0 kg
[~2021-03-12 14:13] MED LIST changes: +CLON0.1T14 PO; +DICY20TA2 PO; -DICY20TA28 PO; -FLUO40CA49 PO; +METH-406 PO; +MIRT-93 PO; +QUET25TA PO; -TRAZ-147 PO
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
[2021-03-12] MEDS ORDERED: KETOROLAC TROMETHAMINE 15 MG INJ IM ONE (15:00)
[2021-03-12] MEDS ORDERED: HYDROCODONE/APAP 5-325MG TABLET PO ONE (15:00)
[2021-03-12] MEDS ORDERED: KETOROLAC TROMETHAMINE 15 MG INJ ONE (15:01)
[2021-03-12] MEDS ORDERED: HYDROCODONE/APAP 5-325MG TABLET ONE (15:02)
[2021-03-12] MEDS ORDERED: IBUP-1955 PO (15:54)
[2021-03-12 16:00] VITALS: BP 124/71
--- NOTE | 2021-03-12 16:00 | NUR ---
Patient discharged to home in stable condition. Written and verbal after care instructions given. Patient verbalizes understanding of instructions. Stressed follow up or return to ER for worsening s/s.PT WALKS IN STEADY GAIT.
[2021-03-12] MEDS ORDERED: CYCL5TAB PO (16:02)
== END 2021-03-12 16:08 | disposition home or self-care (01) ==
LOC: ER 14:13
DX: Z04.1 Encounter for examination and observation following transport accident (principal); M54.2 Cervicalgia; M54.50 Low back pain, unspecified; M25.511 Pain in right shoulder; F41.9 Anxiety disorder, unspecified; Z88.0 Allergy status to penicillin
CPT/HCPCS: 72125; 72131; 73030; A4663; J1885